=== PATIENT | female | born 1985 | race African-American/Black ===

== ENCOUNTER 2021-02-04 03:47 | Emergency (ER) | payer OTHER, SELFPAY ==
[2021-02-04 04:54] VITALS: BP 133/80; PULSE 92; RESP 18; TEMP 36.6; O2SAT 97; BMI 35.9
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
== END 2021-02-04 05:37 | disposition home or self-care (01) ==
PROVIDERS: Emergency Provider Emergency Medicine; PCP Internal Medicine
DX: S61.305A Unspecified open wound of left ring finger with damage to nail, initial encounter (principal); M79.645 Pain in left finger(s); Y29.XXXA Contact with blunt object, undetermined intent, initial encounter; Y93.9 Activity, unspecified; Y92.9 Unspecified place or not applicable; Y99.9 Unspecified external cause status
CPT/HCPCS: 99283